=== PATIENT | male | born 1970 | race Caucasian/White ===

== ENCOUNTER 2020-12-09 23:07 | Emergency (ER) | payer MEDICAID ==
[~2020-12-09] VITALS: Ht 167.6 cm; Wt 72.6 kg
[2020-12-09 23:12] VITALS: BP 139/84
--- NOTE | 2020-12-09 23:18 | NUR ---
PATIENT AMBUALTED TO BED 2 WITH STEADY GAIT. VISION ACUITY TEST READS: BOTH EYES:20/20, L EYE:20/25, R EYE:20/50
--- NOTE | 2020-12-09 23:23 | NUR ---
PT. IS A 50 Y/O MALE THAT CAME INTO ED WITH C/O OF BLURRY VISION DUE TO PIECE OF BOTTLE GLASS SHARD IN HIS EYE. PT. STATES THAT THE INCIDENT HAPPENED YESTERDAY AND HE RATES HIS PAIN AT A 5/10 ON THE PAIN SCALE. SKIN IS PINK/WARM/DRY; AAOX4 WITH EVEN AND STEADY GAIT; HR EVEN AND REGULAR; PT DENIES ANY FEVER, CP, SOB, OR COUGH AT THIS TIME; VSS; PATIENT POSITIONED FOR COMFORT; HOB ELEVATED; BEDRAILS UP X2; BED DOWN. ER MD MADE AWARE OF PT STATUS. PMH: DENIES ALLERGIES: -CILLINS
[2020-12-09] MEDS ORDERED: ERYTHROMYCIN 0.5% OPTH OINT 1 GM TUBE OP ONE (23:40)
[2020-12-09] MEDS ORDERED: TETRACAINE HCL/PF 0.5% OPTH 4 ML BTL OP ONE (23:40)
[2020-12-10] MEDS ORDERED: FLUORESCEIN OPTH STRIP 1 MG ONE (00:12)
[2020-12-10] MEDS ORDERED: FLUORESCEIN OPTH STRIP 1 MG OP ONE (00:15)
[2020-12-10 00:27] VITALS: BP 131/71
[2020-12-10] MEDS ORDERED: KETO5SOL OP (01:31)
[2020-12-10] MEDS ORDERED: TOBR5SOL17 OP (01:31)
--- NOTE | 2020-12-10 02:04 | NUR ---
Patient discharged with v/s stable. Written and verbal after care instructions given and explained. Patient alert, oriented and verbalized understanding of instructions. Ambulatory with steady gait. All questions addressed prior to discharge. ID band removed. Patient advised to follow up with PMD. Rx of ACULAR AND TOBRAMYCIN given. Patient educated on indication of medication including possible reaction and side effects. Opportunity to ask questions provided and answered.
== END 2020-12-10 02:04 | disposition home or self-care (01) ==
LOC: MED 23:07
DX: S05.91XA Unspecified injury of right eye and orbit, initial encounter (principal); X58.XXXA Exposure to other specified factors, initial encounter; Y93.89 Activity, other specified; Y92.89 Other specified places as the place of occurrence of the external cause; Y99.8 Other external cause status
CPT/HCPCS: 90471; 90715; 99283